=== PATIENT | male | born 1950 | race Caucasian/White ===

== ENCOUNTER 2017-11-05 13:53 | Emergency (ER) | payer MEDICARE, MEDICAID ==
[~2017-11-05] VITALS: Ht 177.8 cm; Wt 74.8 kg
[2017-11-05 14:00] VITALS: BP 161/90
== END 2017-11-05 15:40 | disposition home or self-care (01) ==
LOC: ER 13:58
DX: J18.9 Pneumonia, unspecified organism (principal); Z88.0 Allergy status to penicillin
CPT/HCPCS: 71045; 99283; A4606; Z7610